=== PATIENT | female | born 1970 | race Caucasian/White ===

== ENCOUNTER → 2017-01-07 | Outpatient (CLI) | payer OTHER ==
[~2017-01-07] MED LIST: AMB10 PO; CHOL1000 PO; DOCU100C31 PO; HYDR-5688 PO; IBUP1CAP9 PO; LINA1CAP; METO25TA56 PO; PANT40TA PO; SACC250C11
== END | disposition home or self-care (01) ==
LOC: C.PAPS 11:04
PROVIDERS: ATTEND Obstetrics & Gynecology
DX: Z12.4 Encounter for screening for malignant neoplasm of cervix (principal)